=== PATIENT | female | born 1990 | race Caucasian/White ===

== ENCOUNTER 2023-05-16 23:14 | Emergency (ER) | payer BC ==
[~2023-05-16] VITALS: Ht 172.7 cm; Wt 64.4 kg
[2023-05-17] MEDS ORDERED: PIPERACILLIN SODIUM/TAZOBACTAM 3.375 G in IV DEXTROSE 5% 50 ML IV ONE (00:30)
[2023-05-17] MEDS ORDERED: CLINDAMYCIN PHOSPHATE IV 900 MG in IV DEXTROSE 5% 100 ML IV ONE (00:30)
[2023-05-17] MEDS ORDERED: VANCOMYCIN IV 1,000 MG in IV DEXTROSE 5% 250 ML IV ONE (00:30)
[2023-05-17] MEDS ORDERED: VANCOMYCIN IV 200 ML ONE (00:35)
[2023-05-17] MEDS ORDERED: PIPERACILLIN/TAZOBACTAM/D5W 50 ML IV ONE (00:35)
[2023-05-17] MEDS ORDERED: CLINDAMYCIN 900MG/D5W 100ML IVPB **ER PYXIS ONLY IJ ONE (00:35)
[2023-05-17 00:40] LABS: BASOPHILS % (AUTO) 0.4 % (0.0-2.0); EOSINOPHILS # (AUTO) 0.1 K/uL (0.0-0.7); EOSINOPHILS % (AUTO) 1.5 % (0.0-7.0); HEMATOCRIT 38.7 % (31.2-41.9); HEMOGLOBIN 12.9 g/dL (10.9-14.3); LYMPHOCYTES # (AUTO) 1.8 K/uL (0.8-4.8); LYMPHOCYTES % (AUTO) 26.4 % (20.5-51.5); MEAN CORPUSCULAR HEMOGLOBIN 30.1 uug (24.7-32.8); MEAN CORPUSCULAR HGB CONC 33 g/dL (32.3-35.6); MEAN CORPUSCULAR VOLUME 90.3 fL (75.5-95.3); MONOCYTES # (AUTO) 0.8 K/uL (0.1-1.30); MONOCYTES % (AUTO) 12.6 % (0.0-11.0); NEUTROPHILS % (AUTO) 59.1 % (38.5-71.5); PLATELET COUNT (AUTO) 250 K/uL (179-408); RED BLOOD CELL COUNT(AUTO) 4.28 MIL/uL (3.63-4.92); RED CELL DISTRIBUTION WIDTH 12.7 % (12.3-17.7); WHITE BLOOD COUNT (AUTO) 6.7 K/uL (3.8-11.8)
[2023-05-17 00:44] LABS: DIFFERENTIAL COMMENT 1
[2023-05-17] MEDS ORDERED: IV NORMAL SALINE 500 ML BAG IV ONE (00:45)
[2023-05-17 00:55] LABS: ALBUMIN 3.2 g/dL (3.4-5.0); BILIRUBIN,TOTAL 0.5 mg/dL (0.2-1.0); C-REACTIVE PROTEIN 2.3 mg/dL (0.0-0.9); CALCIUM 8.4 mg/dL (8.5-10.1); CREATININE 0.7 mg/dL (0.6-1.3); POTASSIUM 4.5 mmol/L (3.5-5.1); TOTAL PROTEIN, SERUM 6.7 g/dL (6.4-8.2)
[2023-05-17 01:46] LABS: ERYTHROCYTE SEDIMENTATION RATE 14 MM/HR (0-20)
[2023-05-17] MEDS ORDERED: IV NORMAL SALINE 250 ML IV ONE (01:58)
[2023-05-17] MEDS ORDERED: IOHEXOL 300MG/ML 100 ML INFUS..BTL ONE (01:58)
[2023-05-17] MEDS ORDERED: SWABABLE VALVE TRANSFER SET EA MC ONE (01:58)
[2023-05-17] MEDS ORDERED: KETOROLAC TROMETHAMINE 15 MG INJ IVP ONE (02:30)
[2023-05-17] MEDS ORDERED: KETOROLAC TROMETHAMINE 15 MG INJ ONE (02:54)
[2023-05-17 03:04] VITALS: O2SAT 99
[2023-05-17] MEDS ORDERED: CLIN300C12 PO (03:22)
== END 2023-05-17 03:30 | disposition home or self-care (01) ==
LOC: ER 23:21
DX: L03.113 Cellulitis of right upper limb (principal); M79.601 Pain in right arm; F17.210 Nicotine dependence, cigarettes, uncomplicated
CPT/HCPCS: 36415; 83605; 85025; 85651; 86140; 87040; A4663; J1885; J2543; J3370; J3490; J7040; Q9967